=== PATIENT | male | born 1935 | race Caucasian/White ===

== ENCOUNTER → 2019-05-06 07:35 | Outpatient (CLI) | payer MEDICARE, OTHER, SELFPAY ==
--- NOTE | 2019-05-06 07:50 | US_ITS ---
US abdomen complete HISTORY: ITS.REASON: DYSPNEA, CAPUT MEDUSEA ORDERING PHYSICIAN: Tai Lamar MD PATIENT AGE: 83 years COMPARISON: None FINDINGS: PANCREAS:Unremarkable. No obvious mass or abnormal fluid collection. No ductal dilatation LIVER:No focal liver lesions demonstrated. Homogeneous echogenicity. No intrahepatic biliary ductal dilatation evident. There is appropriate direction of blood flow within a nondilated portal vein. RIGHT KIDNEY:Unremarkable. Normal size and echogenicity. No hydronephrosis LEFT KIDNEY:Unremarkable. No hydronephrosis. Normal size and echogenicity. GALLBLADDER:Cholelithiasis. Common bile duct is normal at 3 mm. No gallbladder wall thickening or pericholecystic fluid. AORTA:No evidence of aneurysmal dilatation. SPLEEN:Unremarkable. Normal size and echogenicity ASCITES:None demonstrated. IMPRESSION: 1. Cholelithiasis. 2. Unremarkable appearing portal vein with appropriate direction of blood flow
--- NOTE | 2019-05-06 07:51 | XR_ITS ---
XR chest 2V HISTORY: ITS.REASON: DYSPNEA, CAPUT MEDUSEA ORDERING PHYSICIAN: Tai Lamar MD PATIENT AGE: 83 years COMPARISON: None 12/02/2014 FINDINGS: There has been a prior median sternotomy. There is mild cardiomegaly without failure. There are chronic changes present with bilateral pleural plaques, which are partially calcified along with mild diaphragmatic calcification on the right medially. Increased parenchymal density is noted in the left midlung within the lingula. This is somewhat more prominent when compared to the previous study and may be related to progressive fibrotic change. Neoplasm an additional consideration. Consider chest CT for further evaluation. No acute bony findings. IMPRESSION: Cardiomegaly with chronic pleural parenchymal changes with chronic partially calcified pleural plaques. Increasing density in the lingula which could be related to progressive fibrotic change. Neoplasm is also a consideration. Consider chest CT with contrast for further evaluation
[2019-05-06 09:29] LABS: Basophils % 0.6 % (0.1-2.0); Eosinophils # 0.2 K/mm3 (0.0-0.4); Eosinophils % 4.2 % (0.1-12.0); Hematocrit 42.3 % (42.0-52.0); Hemoglobin 13.1 g/dL (14.1-18.0); Lymphocytes # 1.1 K/mm3 (0.7-4.5); Lymphocytes % 20.7 % (10-50); Mean Corpuscular HGB Conc 30.9 g/dL (31.8-35.4); Mean Corpuscular Volume 96.9 fl (80-94); Mean Platelet Volume 8.2 fl (7.4-10.4); Monocytes # 0.5 K/mm3 (0.1-1.0); Monocytes % 9.6 % (1.7-9.3); Neutrophils # 3.4 K/mm3 (1.8-7.8); Platelet Count 168 K/mm3 (142-424); Red Blood Count 4.36 M/mm3 (4.60-6.20); Red Cell Distribution Width 13.2 % (11.5-17.5); White Blood Count 5.3 K/mm3 (4.8-10.8)
[2019-05-06 10:39] LABS: Alanine Aminotransferase 37 U/L (12-78); Albumin Level 3.1 gm/dL (3.4-5.0); Alkaline Phosphatase 44 U/L (46-116); Anion Gap 12.7 mEq/L (5-15); Aspartate Amino Transferase 27 U/L (15-37); Bilirubin,Total 0.6 mg/dL (0.2-1.0); Blood Urea Nitrogen 18 mg/dL (7-18); Calcium 8.4 mg/dL (8.5-10.1); Carbon Dioxide 28 mmol/L (21.0-32.0); Chloride 107 mmol/L (98-107); Chol/HDL Ratio 3.2 (1-3.5); Cholesterol 161 mg/dL (140-200); Creatinine,Serum 0.94 mg/dL (0.70-1.30); Estimated Glomerular Filt Rate 77 ml/min (>60); GFR (African American) 93 ML/MIN (>60); Globulin 3.1 gm/dl (1.3-3.2); Glucose 134 mg/dL (74-106); HDL Cholesterol 50 mg/dL (27-67); LDL Cholesterol 102 mg/dL (0-130); Potassium 4.7 mmoL/L (3.5-5.1); Sodium 143 mmol/L (136-145); Total Protein,Serum 6.2 gm/dL (6.4-8.2); Triglycerides 46 mg/dL (30-200); VLDL Cholesterol 9 mg/dL (0-40)
[2019-05-08 21:41] LABS: Vitamin B12 354 pg/mL (232-1245)
== END ==
PROVIDERS: PCP Internal Medicine Adolescent Medicine; Visit Provider Internal Medicine Adolescent Medicine
DX: R06.09 Other forms of dyspnea (principal); I86.8 Varicose veins of other specified sites; E78.5 Hyperlipidemia, unspecified; E53.8 Deficiency of other specified B group vitamins; I25.10 Atherosclerotic heart disease of native coronary artery without angina pectoris
CPT/HCPCS: 36415; 71046; 76700; 80053; 80061; 82607; 85025

== ENCOUNTER → 2019-09-05 15:07 | Outpatient (CLI) | payer MEDICARE, OTHER, SELFPAY ==
[2019-09-05 15:30] LABS: Basophils % 0.5 % (0.1-2.0); Eosinophils # 0.2 K/mm3 (0.0-0.4); Eosinophils % 3.8 % (0.1-12.0); Hematocrit 43.3 % (42.0-52.0); Lymphocytes # 1.2 K/mm3 (0.7-4.5); Lymphocytes % 19.3 % (10-50); Mean Corpuscular HGB Conc 32.3 g/dL (31.8-35.4); Mean Corpuscular Hemoglobin 32.6 pg (27.0-31.2); Mean Corpuscular Volume 100.8 fl (80-94); Mean Platelet Volume 8.6 fl (7.4-10.4); Monocytes # 0.6 K/mm3 (0.1-1.0); Monocytes % 9.1 % (1.7-9.3); Neutrophils # 4.2 K/mm3 (1.8-7.8); Neutrophils % 67.3 % (37.0-80.0); Platelet Count 180 K/mm3 (142-424); Red Cell Distribution Width 13.2 % (11.5-17.5); White Blood Count 6.3 K/mm3 (4.8-10.8)
[2019-09-05 17:11] LABS: Hemoglobin A1C 7.2 % (0.0-7.0)
[2019-09-05 17:33] LABS: Alanine Aminotransferase 20 U/L (12-78); Albumin Level 3.3 gm/dL (3.4-5.0); Alkaline Phosphatase 46 U/L (46-116); Anion Gap 8.4 mEq/L (5-15); Aspartate Amino Transferase 15 U/L (15-37); Bilirubin,Total 0.5 mg/dL (0.2-1.0); Blood Urea Nitrogen 15 mg/dL (7-18); Calcium 8.6 mg/dL (8.5-10.1); Carbon Dioxide 29 mmol/L (21.0-32.0); Chloride 106 mmol/L (98-107); Chol/HDL Ratio 3.1 (1-3.5); Cholesterol 170 mg/dL (140-200); Creatinine,Serum 0.83 mg/dL (0.70-1.30); Estimated Glomerular Filt Rate 89 ml/min (>60); GFR (African American) 108 ML/MIN (>60); Globulin 3.3 gm/dl (1.3-3.2); Glucose 128 mg/dL (74-106); HDL Cholesterol 54 mg/dL (27-67); LDL Cholesterol 75 mg/dL (0-130); Magnesium 1.8 mg/dL (1.4-2.2); Potassium 4.4 mmoL/L (3.5-5.1); Sodium 139 mmol/L (136-145); Thyroid Stimulating Hormone 0.79 uIU/ml (0.358-3.740); Total Protein,Serum 6.6 gm/dL (6.4-8.2); Triglycerides 206 mg/dL (30-200); VLDL Cholesterol 41 mg/dL (0-40)
== END ==
PROVIDERS: Visit Provider Internal Medicine Adolescent Medicine
DX: I25.10 Atherosclerotic heart disease of native coronary artery without angina pectoris (principal); E78.5 Hyperlipidemia, unspecified; E11.9 Type 2 diabetes mellitus without complications
CPT/HCPCS: 36415; 80053; 80061; 83036; 83735; 84443; 85025

== ENCOUNTER → 2019-09-19 11:06 | Outpatient (CLI) | payer MEDICARE, OTHER, SELFPAY ==
--- NOTE | 2019-09-19 11:28 | ECG_ITS ---
APPROVED REPORT Exam: Resting ECG HR:71 bpm ECG Measurements Heart Rate 71 AXES MA 150 P 53 QRSd 152 QRS 73 QT 442 T 261 QTc 480 <Conclusion> Sinus rhythm with premature ventricular complexes Left bundle branch block Abnormal ECG Electronically signed by : Rolf Mcgraw, 09/19/2019 15:59:09
[2019-09-19 12:05] LABS: Basophils % 0.4 % (0.1-2.0); Eosinophils # 0.2 K/mm3 (0.0-0.4); Eosinophils % 2.1 % (0.1-12.0); Hematocrit 45.1 % (42.0-52.0); Hemoglobin 14.4 g/dL (14.1-18.0); Lymphocytes # 1.1 K/mm3 (0.7-4.5); Lymphocytes % 14.5 % (10-50); Mean Corpuscular HGB Conc 31.8 g/dL (31.8-35.4); Mean Corpuscular Hemoglobin 32.7 pg (27.0-31.2); Mean Corpuscular Volume 102.6 fl (80-94); Mean Platelet Volume 9.3 fl (7.4-10.4); Monocytes # 0.6 K/mm3 (0.1-1.0); Monocytes % 7.8 % (1.7-9.3); Neutrophils # 5.6 K/mm3 (1.8-7.8); Neutrophils % 75.2 % (37.0-80.0); Platelet Count 175 K/mm3 (142-424); Red Cell Distribution Width 13.3 % (11.5-17.5); White Blood Count 7.4 K/mm3 (4.8-10.8)
== END ==
PROVIDERS: Visit Provider Otolaryngology
DX: Z01.818 Encounter for other preprocedural examination (principal); L98.9 Disorder of the skin and subcutaneous tissue, unspecified
CPT/HCPCS: 36415; 85025; 93005

== ENCOUNTER → 2020-05-28 12:24 | Outpatient (CLI) | payer MEDICARE, OTHER, SELFPAY ==
--- NOTE | 2020-05-28 | XR_ITS ---
PROCEDURE: XR KNEE RT 3V CLINICAL INDICATION: Effusion COMPARISON: No exams were available for comparison FINDINGS: No fracture or dislocation. No lytic or blastic change. There is normal mineralization. There are mild osteoarthritic changes of the medial compartment and patellofemoral joint. Chondrocalcinosis noted involving the menisci. There is a calcification noted along the medial aspect of the lateral joint space and could be due to a loose body. There is diffuse vascular calcification. Other findings:None. IMPRESSION: Mild osteoarthritis with possible loose body of the lateral compartment and small knee joint Dictated by: Rocco Youngblood MD 05/28/2020 14:54 Electronically signed by Rocco Youngblood MD in [place] 05/28/2020 14:54
--- NOTE | 2020-05-28 | XR_ITS ---
PROCEDURE: XR KNEE LT 3V CLINICAL INDICATION: Pain COMPARISON: No exams were available for comparison FINDINGS: No fracture or dislocation. No lytic or blastic change. There is normal mineralization. Minimal osteoarthritic changes are present at the patellofemoral joint. There is mild diffuse vascular calcification. Minimal spurring at the tibial spines. Other findings:None. IMPRESSION: Mild osteoarthritic change with diffuse vascular calcification Dictated by: Rocco Youngblood MD 05/28/2020 14:55 Electronically signed by Rocco Youngblood MD in [place] 05/28/2020 14:55
[2020-05-28 13:23] LABS: Basophils % 0.1 % (0.1-2.0); Eosinophils # 0.2 K/mm3 (0.0-0.4); Eosinophils % 3.3 % (0.1-12.0); Hemoglobin 13.3 g/dL (14.1-18.0); Lymphocytes # 1.1 K/mm3 (0.7-4.5); Lymphocytes % 16.6 % (10-50); Mean Corpuscular HGB Conc 32.5 g/dL (31.8-35.4); Mean Corpuscular Hemoglobin 33.6 pg (27.0-31.2); Mean Corpuscular Volume 103.5 fl (80-94); Mean Platelet Volume 9.2 fl (7.4-10.4); Monocytes # 0.5 K/mm3 (0.1-1.0); Monocytes % 7.8 % (1.7-9.3); Neutrophils # 4.6 K/mm3 (1.8-7.8); Neutrophils % 72.2 % (37.0-80.0); Platelet Count 181 K/mm3 (142-424); Red Blood Count 3.96 M/mm3 (4.60-6.20); Red Cell Distribution Width 13.4 % (11.5-17.5); White Blood Count 6.4 K/mm3 (4.8-10.8)
[2020-05-28 13:40] LABS: Chloride 101 mmol/L (98-107); Sodium 136 mmol/L (136-145)
[2020-05-28 13:41] LABS: Potassium 5.1 mmoL/L (3.5-5.1)
[2020-05-28 13:43] LABS: Alanine Aminotransferase 21 U/L (12-78); Albumin Level 3.5 g/dl (3.5-5.0); Albumin/Globulin Ratio 1.3 (1.1-1.8); Alkaline Phosphatase 44 U/L (38-126); Anion Gap 13.1 mEq/L (5-15); Aspartate Amino Transferase 23 U/L (17-59); Bilirubin,Total 0.7 mg/dl (0.2-1.3); Blood Urea Nitrogen 21 mg/dl (9-20); Calcium 8.8 mg/dl (8.4-10.2); Carbon Dioxide 27 mmol/L (22.0-30.0); Cholesterol 160 mg/dl (140-200); Estimated Glomerular Filt Rate 93 ml/min (>60); GFR (African American) 112 ML/MIN (>60); Globulin 2.7 g/dL (1.3-3.2); Glucose 150 mg/dl (74-100); HDL Cholesterol 57 mg/dl (40-60); Total Protein,Serum 6.2 g/dl (6.3-8.2); Triglycerides 122 mg/dl (30-150); VLDL Cholesterol 24 mg/dL (0-40)
[2020-05-28 13:49] LABS: Hemoglobin A1C 7.3 % (4.0-6.0)
[2020-05-28 13:56] LABS: Direct LDL Cholesterol 89.87 mg/dL (100-129)
[2020-05-28 18:05] LABS: Chol/HDL Ratio 2.8 (1-3.5)
[2020-05-29 06:38] LABS: Vitamin B12 310 pg/mL (232-1245)
== END ==
LOC: LAB 12:27 → RAD 12:44
PROVIDERS: PCP Internal Medicine Adolescent Medicine; Visit Provider Internal Medicine Adolescent Medicine
DX: M17.0 Bilateral primary osteoarthritis of knee (principal); I25.10 Atherosclerotic heart disease of native coronary artery without angina pectoris; E78.5 Hyperlipidemia, unspecified; E53.8 Deficiency of other specified B group vitamins; R73.9 Hyperglycemia, unspecified
CPT/HCPCS: 36415; 73562; 80053; 80061; 82607; 83036; 85025

== ENCOUNTER → 2020-09-03 12:00 | Outpatient (CLI) | payer MEDICARE, OTHER, SELFPAY ==
--- NOTE | 2020-09-03 12:25 | XR_ITS ---
PROCEDURE: XR CHEST 2V CLINICAL HISTORY: CHF,W/ LT VENTRICULAR DIASTOTIC DYSFUNCTION COMPARISON: CR CXR CHEST(2 VIEWS-NOT PORTABLE) from 12/02/[address] CHEST W/ CONTRAST from 12/14/2015 FINDINGS: This is a slightly poor inspiratory effort. There are moderate-sized bilateral pleural effusions. There is a small amount of fluid ascending in the major fissure. There is no significant vascular congestion. There are sternal wire sutures and surgical clips seen likely from previous CABG. There is mild to moderate generalized cardiomegaly. A moderate-sized opacities seen along the left heart border which was noted previously and shown to be due to chronic pleural parenchymal scarring in the lingula. IMPRESSION: Mild to moderate generalized cardiomegaly, moderate-sized bilateral pleural effusions possibly secondary to well compensated chronic congestive heart failure in view of the clinical history Dictated by: Dr. Ceferino Hartley MD 09/03/2020 13:08 Dr. Ceferino Hartley MD in [place] 09/03/2020 13:08
[2020-09-03 12:37] LABS: Chloride 102 mmol/L (98-107)
[2020-09-03 12:38] LABS: Potassium 4.7 mmoL/L (3.5-5.1); Sodium 137 mmol/L (136-145)
[2020-09-03 12:40] LABS: Alanine Aminotransferase 48 U/L (12-78); Alkaline Phosphatase 44 U/L (38-126); Aspartate Amino Transferase 43 U/L (17-59); Bilirubin,Total 0.7 mg/dl (0.2-1.3); Blood Urea Nitrogen 20 mg/dl (9-20); Estimated Glomerular Filt Rate 93 ml/min (>60); GFR (African American) 112 ML/MIN (>60)
[2020-09-03 12:41] LABS: Albumin Level 3.2 g/dl (3.5-5.0); Albumin/Globulin Ratio 1.3 (1.1-1.8); Anion Gap 8.7 mEq/L (5-15); Calcium 8.4 mg/dl (8.4-10.2); Carbon Dioxide 31 mmol/L (22.0-30.0); Globulin 2.5 g/dL (1.3-3.2); Glucose 154 mg/dl (74-100); Total Protein,Serum 5.7 g/dl (6.3-8.2)
[2020-09-03 12:50] LABS: NT Pro Brain Natriuretic Pep. 5340 pg/mL (0-450)
[2020-09-03 13:03] LABS: Basophils % 0.3 % (0.1-2.0); Eosinophils # 0.1 K/mm3 (0.0-0.4); Hematocrit 46.9 % (42.0-52.0); Hemoglobin 14.8 g/dL (14.1-18.0); Lymphocytes # 0.8 K/mm3 (0.7-4.5); Lymphocytes % 11.3 % (10-50); Mean Corpuscular HGB Conc 31.5 g/dL (31.8-35.4); Mean Corpuscular Hemoglobin 32.6 pg (27.0-31.2); Mean Corpuscular Volume 103.5 fl (80-94); Mean Platelet Volume 9.7 fl (7.4-10.4); Monocytes # 0.6 K/mm3 (0.1-1.0); Monocytes % 8.6 % (1.7-9.3); Neutrophils # 5.6 K/mm3 (1.8-7.8); Neutrophils % 77.9 % (37.0-80.0); Platelet Count 181 K/mm3 (142-424); Red Blood Count 4.53 M/mm3 (4.60-6.20); Red Cell Distribution Width 13.6 % (11.5-17.5); White Blood Count 7.2 K/mm3 (4.8-10.8)
== END ==
PROVIDERS: Visit Provider Internal Medicine Adolescent Medicine
DX: I50.30 Unspecified diastolic (congestive) heart failure (principal)
CPT/HCPCS: 36415; 71046; 80053; 83880; 85025

== ENCOUNTER → 2020-09-07 09:01 | Outpatient (CLI) | payer MEDICARE, OTHER, SELFPAY ==
--- NOTE | 2020-09-07 09:04 | CA_ITS ---
APPROVED REPORT EXAM: Comprehensive 2D, Doppler, and color-flow Echocardiogram Marketing Communications Assistant: Maria Teresa Grace RT(R) Ht: 5 ft 11 in Wt: 231lbs BSA: 2.24 BP: 143/80 mmHg Indications: CHF, HTN, hyperlipidemia, CAD, DM 2D Dimensions LVOT 2.26 cm (M/F) 1.5-2.5 LVEF (Ventura's) 34.20 % M: 52 - 72 LV Volume 256.90 mL M: 62 - 150 LV Volume Index 114.68 mL/m2 M: 34 - 74 M-Mode Dimensions RVDd 2.46 cm (0.9-2.6) LA Diam 4.22 cm (1.9-4.0) LVDd 6.50 cm (3.5-5.7) Ao Diam 3.83 cm (2.0-3.7) LVDs 6.03 cm (3.5-5.7) IVSd 1.53 cm (0.6-1.1) PWd 1.02 cm (0.6-1.1) EF (Teich) 15.70% FS 7.20% EDV (Teich) 216.00 mL ESV (Teich) 182.10 mL Left Ventricle Technically difficult study because of the patient factors and poor acoustic windows. Left atrium is mildly enlarged, left ventricle is mildly dilated, there is reduced left ventricular systolic function, visually estimated ejection fraction 3035%, there is marked hypokinesis involving the basal septum, inferior, inferior basal and posterior basal wall. Right Ventricle Right atrium and right ventricular normal size and contractility. Aortic Valve Aortic valve is thickened and calcified leaflet continue to display good mobility, there is no aortic stenosis, there is mild aortic insufficiency. Mitral Valve Mitral valve leaflets are minimally thickened, there is mild mitral regurgitation. Tricuspid Valve Tricuspid valve is grossly normal, there is mild tricuspid regurgitation, tricuspid regurgitation jet velocity is inadequate for calculation of the right ventricular systolic pressure. Pulmonic Valve Pulmonic valve is poorly visualized. Great Vessels Aortic root is normal size. Pericardium No significant pericardial effusion noted. Conclusion 1. Technically difficult study because of the patient factors and poor acoustic windows. 2. Mildly enlarged left atrium, mildly dilated left ventricle, mild concentric left ventricular hypertrophy, visually estimated ejection fraction 30 to 35% with multiple segmental wall motion abnormality described above, diastolic parameters are inconclusive. 3. Thickened and calcified aortic valve without Doppler evidence of aortic stenosis, there is mild aortic insufficiency. 4. Mild mitral and tricuspid regurgitation. 5. No significant pericardial effusion noted. Critical Notification Critical Value: Yes Physician Notified Date: 09/07/2020 Time: 09:47 Physician Name: Dr. Lamar Electronically signed by : Vipin Whitley, 09/07/2020 13:16:21
== END ==
PROVIDERS: PCP Internal Medicine Adolescent Medicine; Visit Provider Internal Medicine Adolescent Medicine
DX: I50.9 Heart failure, unspecified (principal); I25.10 Atherosclerotic heart disease of native coronary artery without angina pectoris
CPT/HCPCS: 93306

== ENCOUNTER → 2020-09-13 14:15 | Outpatient (CLI) | payer MEDICARE, OTHER, SELFPAY ==
[2020-09-13 15:23] LABS: Basophils % 0.6 % (0.1-2.0); Eosinophils # 0.2 K/mm3 (0.0-0.4); Eosinophils % 2.9 % (0.1-12.0); Hematocrit 44.5 % (42.0-52.0); Hemoglobin 14.6 g/dL (14.1-18.0); Lymphocytes # 0.9 K/mm3 (0.7-4.5); Lymphocytes % 15.1 % (10-50); Mean Corpuscular HGB Conc 32.8 g/dL (31.8-35.4); Mean Corpuscular Hemoglobin 33.2 pg (27.0-31.2); Mean Platelet Volume 9.2 fl (7.4-10.4); Monocytes # 0.4 K/mm3 (0.1-1.0); Monocytes % 7.6 % (1.7-9.3); Neutrophils # 4.2 K/mm3 (1.8-7.8); Neutrophils % 73.9 % (37.0-80.0); Platelet Count 161 K/mm3 (142-424); Red Blood Count 4.41 M/mm3 (4.60-6.20); Red Cell Distribution Width 13.3 % (11.5-17.5); White Blood Count 5.7 K/mm3 (4.8-10.8)
[2020-09-13 15:45] LABS: Chloride 101 mmol/L (98-107); Potassium 4.8 mmoL/L (3.5-5.1); Sodium 139 mmol/L (136-145)
[2020-09-13 15:48] LABS: Anion Gap 11.8 mEq/L (5-15); Blood Urea Nitrogen 14 mg/dl (9-20); Calcium 9.2 mg/dl (8.4-10.2); Carbon Dioxide 31 mmol/L (22.0-30.0); Estimated Glomerular Filt Rate 93 ml/min (>60); GFR (African American) 112 ML/MIN (>60); Glucose 138 mg/dl (74-100)
[2020-09-13 15:57] LABS: Coronavirus 19 IgG Antibody Negative (Negative)
[2020-09-13 15:58] LABS: Coronavirus 19 IgM Antibody Negative (Negative)
== END ==
PROVIDERS: Visit Provider Internal Medicine
DX: Z01.810 Encounter for preprocedural cardiovascular examination (principal); I25.10 Atherosclerotic heart disease of native coronary artery without angina pectoris
CPT/HCPCS: 36415; 80048; 85025; 86328

== ENCOUNTER 2020-09-14 08:56 | Day surgery (SDC) | payer MEDICARE, OTHER, SELFPAY ==
[2020-09-14] VITALS (10 sets, daily range): BP systolic 128–167; BP diastolic 55–93; PULSE 54–73; RESP 16–20; TEMP 36.6–36.7; O2SAT 90–100; BMI 31.5
--- NOTE | 2020-09-14 | IR_ITS ---
APPROVED REPORT Patient Location: Outpatient Correctional Case Manager: ZEFERINO Holder RT (R) PROCEDURES Left heart catheterization Left ventriculogram Selective coronary angiogram Left internal mammary angiography Selective engagement of the saphenous vein graft to the diagonal artery Right internal mammary angiography INDICATION Ischemic cardiomyopathy ejection fraction 30%, Coronary artery disease, History of coronary bypass surgery Informed consent was obtained prior to the procedure. COMPLICATIONS NONE Estimated Blood Loss: LESS THAN 10 ML TECHNIQUE One percent lidocaine used to anesthetize the right groin. The right femoral artery was accessed via the Seldinger technique and a 5 [place] sheath was placed in the right femoral artery. A JL 4, JR4 catheter were used to perform left heart catheterization, left ventriculogram selective coronary angiography as well as selective engagement of the artery. The JR4 catheter was placed on the right subclavian artery and right internal mammary angiography was performed at the end of the procedure the patient was transferred to the postop holding area in stable condition for sheath removal. ANGIOGRAPHIC RESULTS The left main artery Normal The left anterior descending artery Is ostially occluded The circumflex artery Gives rise to a small to moderate ramus intermedius which has proximal and mid vessel 40% stenosis. This is a small caliber vessel less than 2 mm. The circumflex artery itself is a small caliber nondominant vessel which gives rise to a small 1 mm terminal obtuse marginal artery The right coronary artery Is dominant and proximally occluded The MERCADO ventriculogram reveals Dilated ventricle inferior wall akinesis anterior wall hypokinesis estimated ejection fraction 30% The left ventricular end-diastolic pressure 15 mmHg The left internal mammary artery is widely patent to the LAD The saphenous vein graft to the diagonal artery is patent The right internal mammary artery is widely patent to the chest wall IMPRESSION Coronary disease as described above Patent two-vessel CABG Dilated and severely reduced ventricle Mildly elevated LVEDP PLAN 1. Medical management for coronary artery disease 2. Patient should be a candidate for cardiac resynchronization therapy with defibrillator based on the wide QRS 3. LDL less than 55 4. Recommend scheduling patient for [facility] next week Electronically signed by : Denis Wylie, 09/14/2020 11:55:45
== END 2020-09-14 14:58 | disposition home or self-care (01) ==
LOC: CATHLAB 08:58
PROVIDERS: PCP Internal Medicine Adolescent Medicine; Visit Provider Internal Medicine
DX: I25.118 Atherosclerotic heart disease of native coronary artery with other forms of angina pectoris (principal); I11.0 Hypertensive heart disease with heart failure; I50.20 Unspecified systolic (congestive) heart failure; E78.5 Hyperlipidemia, unspecified; E11.9 Type 2 diabetes mellitus without complications; Z95.1 Presence of aortocoronary bypass graft; I42.8 Other cardiomyopathies; Z79.84 Long term (current) use of oral hypoglycemic drugs; Z79.82 Long term (current) use of aspirin; Z79.899 Other long term (current) drug therapy
CPT/HCPCS: 93459; 99152; 99153; C1725; C1769; C1894; J1644; Q9967

== ENCOUNTER 2020-09-17 09:58 | Day surgery (SDC) | payer MEDICARE, OTHER, SELFPAY ==
[2020-09-17] VITALS (9 sets, daily range): BP systolic 89–156; BP diastolic 48–94; PULSE 66–81; RESP 16–20; O2SAT 87–96; BMI 31.5
--- NOTE | 2020-09-17 | IR_ITS ---
APPROVED REPORT Patient Location: Outpatient Radiation Officer: ZEFERINO Phillips RT (R) PROCEDURES 1. Pocket Formation 2. Placement of atrial sensing and pacing lead to the right atrial appendage. 3. Placement of ventricular sensing pacing and shocking lead in the right ventricular apex. 4. Placement of left ventricular sensing pacing lead via the coronary sinus. 5. Permanent cardiac resynchronization therapy with ICD implantation/biventricular pacemaker. INDICATION Systolic Congestive Heart Failure, ejection <35%, Wide QRS >120ms, [place] Heart Assoication Class 3 Congestive Heart Failure Informed consent was obtained prior to the procedure. COMPLICATIONS None Estimated Blood Loss: Less Than 10 mls TECHNIQUE 1% Lidocaine with epinephrine used to anesthetized the left anterior aspect of the chest. Scalpel was used to make the initial cutaneous incision while electrocautery was used to dissect down tinto the fascia. The fascia was lifted off the pectoralis muscle and digitally manipulated creating a pocket for the defibrillator. The patient was then placed in Trendelenburg position and the subclavian vein was accessed 3 times via the Selinger technique. A 8 [place] sheath was placed into the subclavian vein. The dilator was removed from the sheath. Using fluoroscopic guidance, the ventricular lead was placed into the right ventricular apex, screwed and secured into place. Electronic interrogation proved acceptable thresholds and voltage within the lead. Using 3-0 silk, the ventricular lead was then secured into place and sheath peeled away. Following this, a 9.5 [place] sheath and dilator was then placed over one of the wires while keeping the other wire in place within the subclavian vein. The dilator was removed from the sheath. Using fluoroscopic guidance, contrast was used to visualize the coronary sinus, the left ventricular lead was placed into the coronary sinus. Electronic interrogation proved acceptable thresholds and voltage within the lead. Using 3-0 silk, the left ventricular lead was then secured into place and sheath peeled away.An additional 6 [place] fresh sheath and dilator was placed over the existing wire. Using fluoroscopic guidance, the atrial lead was then placed into the right atrial appendage and screwed and secured in place. Electrical interrogation demonstrated acceptable thresholds and voltage number. The atrial lead was then secured into place using 3-0 silk and sheath peeled away. 1 gram of Ancef was used to flush the pocket. All 3 leads were connected to generator and tested via computer. The defibrillator then secured to the fascia. Monocryl was used to close the subcutaneous layers while alexander were used to close the cutaneous layer. A pressure dressing was placed and the patient was transferred to the postop holding area in stable condition for postoperative care. IMPRESSION Generator Model: [employer] X4 ELECTRODYNAMICIST-D, model no: G247 Generator Serial No: [id number] RA Lead Model: [employer]ITY 7841 RA Lead Serial No: [id number] RV Lead Model: NERSTRAND 4-FRONT 0675 RA Lead Serial No: [id number] LV Lead Model: ACUITY X4 4674 LV Lead Serial No: [id number] Device Measurements: RA Lead: Intrinsic: 4.0mV Threshold: 1.0V@0.4ms Impedence: 600 ohms RV Lead: Intrinsic: 25.0mV Threshold: 1.0V@0.4ms Impedence: 1200 ohms LV Lead: Intrinsic: 25.0mV Threshold: 1.2V@1.0ms Impedence: 900 ohms Parameters: Mode: DDDR Base/Max: 70/130ppm VF: 180bpm VT: 160bpm Conclussion 1. Successful Pocket Formation 2. Successfu Placement of atrial sensing and pacing lead to the right atrial appendage. 3. Successfu Placement of ventr
[2020-09-17 10:52] LABS: Basophils % 0.4 % (0.1-2.0); Eosinophils # 0.2 K/mm3 (0.0-0.4); Eosinophils % 2.6 % (0.1-12.0); Hematocrit 48.8 % (42.0-52.0); Hemoglobin 15.5 g/dL (14.1-18.0); Lymphocytes # 0.9 K/mm3 (0.7-4.5); Lymphocytes % 13.3 % (10-50); Mean Corpuscular HGB Conc 31.8 g/dL (31.8-35.4); Mean Corpuscular Hemoglobin 33.1 pg (27.0-31.2); Mean Platelet Volume 9.1 fl (7.4-10.4); Monocytes # 0.6 K/mm3 (0.1-1.0); Monocytes % 9.2 % (1.7-9.3); Neutrophils # 4.8 K/mm3 (1.8-7.8); Neutrophils % 74.4 % (37.0-80.0); Platelet Count 175 K/mm3 (142-424); Red Blood Count 4.69 M/mm3 (4.60-6.20); Red Cell Distribution Width 13.4 % (11.5-17.5); White Blood Count 6.4 K/mm3 (4.8-10.8)
[2020-09-17 10:57] LABS: Chloride 100 mmol/L (98-107); Potassium 4.1 mmoL/L (3.5-5.1); Sodium 140 mmol/L (136-145)
[2020-09-17 11:00] LABS: Anion Gap 11.1 mEq/L (5-15); Blood Urea Nitrogen 25 mg/dl (9-20); Carbon Dioxide 33 mmol/L (22.0-30.0); Creatinine Clearance Estimated 83 mL/min (50-200); Estimated Glomerular Filt Rate 93 ml/min (>60); GFR (African American) 112 ML/MIN (>60)
[2020-09-17 11:01] LABS: Calcium 9.2 mg/dl (8.4-10.2); Glucose 170 mg/dl (74-100)
[2020-09-17 11:44] LABS: Coronavirus 19 IgG Antibody Negative (Negative); Coronavirus 19 IgM Antibody Negative (Negative)
--- NOTE | 2020-09-17 11:48 | XR_ITS ---
PROCEDURE: XR CHEST PORTABLE CLINICAL HISTORY: Confirm pacemaker/AID placement COMPARISON: CR CXR CHEST(2 VIEWS-NOT PORTABLE) from 12/02/[address] CHEST W/ CONTRAST from 12/14/2015 CR XR CHEST 2V from 09/03/2020 FINDINGS: There is cardiomegaly. Biventricular and right atrial pacemaker leads have been placed from left subclavian approach. No evidence of pneumothorax. There is consolidation in both lower lobes left more extensive than right with bilateral effusions. There is a left lower lobe mass at 4 cm not significantly changed. The right lower lobe consolidation has developed since the previous exam. There has been a prior CABG. IMPRESSION: Interval pacemaker placement as described above without evidence of pneumothorax. Bilateral effusions with bilateral lower lobe consolidation and left lower lobe mass. Dictated by: Rocco Youngblood MD 09/17/2020 15:09 Rocco Youngblood MD in [place] 09/17/2020 15:09
--- NOTE | 2020-09-17 14:24 | HMH.ANESCL ---
[facility] Anesthesia Checklist - Patient Identification Patient Identification: Arm Band, Verbal (Name & ) - Structural Data Admitted From: Home Planned Operative Procedure/s: Biventriculer AICD placement Consent for Planned Operative Procedure(s) Verified: Yes Verified Documents: Surgical Consent, History and Physical - NPO Status Verified Time NPO: 00:00 - Chart Verification Results Verified: CBC, BMP - Additional verifications Anesthesia Reactions: No Hx Blood Transfusions: No Blood Transfusion Reaction: No - Airway Assessment C-Spine Mobility Assessed: Yes (MP 2, TMD 3, limited neck ROM) TMJ Mobility Assessed: Yes Dentition: Dentures-good fit - Neurological Assessment Level of Consciousness: Awake, Alert, Appropriate, Follows Commands Hx Seizures: No Numbness or tingling in extremities: No - Anesthesia Plan Anesthesia Risk discussed: Yes Anesthesia Plan: Verified ASA Class: III Anesthesia Type: MAC [facility] History I have reviewed the patient's past medical history: Yes Medical History: Reports:: Congestive Heart Failure, Coronary Artery Disease, Diabetes Mellitus Type 2, Hyperlipidemia, Hypertension Denies:: Cancer, Diabetes Mellitus Type 1, Internal Pacemaker, MRSA, Seizures *Have you ever received a pneumonia vaccine?: No *Have you received a flu vaccine this season?: Yes Other Medical History: Denies: Blood Transfusion Reaction Comment:: obesity Anesthesia experience/problems:: None Other Surgeries: Yes: CABG, Skin Cancer Excision. No: Pacemaker Amputation: No Fractures: No - *Social History Smoking Status: Never smoker Tobacco Type: smokeless tobacco # Packs/Day (cigarettes): 0 Alcohol Intake: never Substance Use Type: denies use *Occupational Status:: retired Housing: house Household Members: family *Travel in the last 8 weeks: Inside the [facility] Family Hx:: Coronary Artery Disease
== END 2020-09-17 15:55 | disposition home or self-care (01) ==
LOC: CATHLAB 09:59
PROVIDERS: PCP Internal Medicine Adolescent Medicine; Visit Provider Internal Medicine
PROC: 0JH609Z Insertion of Cardiac Resynchronization Defibrillator Pulse Generator into Chest Subcutaneous Tissue and Fascia, Open Approach (ICD-10-PCS; CPT 33249; principal; 2020-09-17 11:30)
DX: I25.5 Ischemic cardiomyopathy (principal); E11.9 Type 2 diabetes mellitus without complications; I50.22 Chronic systolic (congestive) heart failure; I11.0 Hypertensive heart disease with heart failure; I25.118 Atherosclerotic heart disease of native coronary artery with other forms of angina pectoris; Z79.84 Long term (current) use of oral hypoglycemic drugs; Z79.82 Long term (current) use of aspirin; I42.9 Cardiomyopathy, unspecified; E78.5 Hyperlipidemia, unspecified; Z95.1 Presence of aortocoronary bypass graft; Z45.02 Encounter for adjustment and management of automatic implantable cardiac defibrillator
CPT/HCPCS: 33249; 71045; 80048; 85025; 86328; C1769; C1882; C1895; C1898; C1900; Q9967

== ENCOUNTER → 2020-10-01 10:37 | Outpatient (CLI) | payer MEDICARE, OTHER, SELFPAY ==
[2020-10-01 11:50] LABS: Anion Gap 10.8 mEq/L (5-15); Blood Urea Nitrogen 24 mg/dl (9-20); Calcium 9.2 mg/dl (8.4-10.2); Carbon Dioxide 34 mmol/L (22.0-30.0); Chloride 99 mmol/L (98-107); Estimated Glomerular Filt Rate 93 ml/min (>60); GFR (African American) 112 ML/MIN (>60); Glucose 235 mg/dl (74-100); Potassium 4.8 mmoL/L (3.5-5.1); Sodium 139 mmol/L (136-145)
== END ==
PROVIDERS: Visit Provider Nurse Practitioner Family
DX: R06.00 Dyspnea, unspecified; E78.5 Hyperlipidemia, unspecified; I20.9 Angina pectoris, unspecified; I50.20 Unspecified systolic (congestive) heart failure; R60.0 Localized edema; Z95.1 Presence of aortocoronary bypass graft; I11.0 Hypertensive heart disease with heart failure
CPT/HCPCS: 36415; 80048